=== PATIENT | female | born 1930 | race Caucasian/White ===

== ENCOUNTER → 2016-11-06 | Outpatient (CLI) | payer OTHER ==
[~2016-11-06] MED LIST: ALPRAZOLAM1 M1; AMLODIPINE BESYL5 MG PO; ASMANEX0.135 G1; BROVANA15 MCG/2 M; CALTRATE-600 W1 EACH PO; CITRATE OF MAG296 ML; CO Q-10200 MG PO; CRANBERRY500 M1; DHEA25 MG PO; DHEA50 MG; ENALAPRIL MALEAT5 M1 PO; FLAX OIL1000 MG PO; GLUCOSAMINE HC500 MG PO; GLUCOSAMINE S1000 M2 PO; HYDROCHLOROTHIA25 M1; HYDROCODON-ACE1 EAC1; IBUPROFEN 800800 M1 PO; KLOR-CON; MAGNES; MELOXICAM7.5 MG; ODORLESS GARLI500 MG; OMEPRAZOLE20 MG PO; PULMICORT0.25 MG/2; VITAMIN D1000 UNI1 PO; VITAMIN E400 UNIT PO
== END ==
LOC: MRI 12:23
DX: M48.56XA Collapsed vertebra, not elsewhere classified, lumbar region, initial encounter for fracture (principal); M41.86 Other forms of scoliosis, lumbar region; M48.06 Spinal stenosis, lumbar region; N28.1 Cyst of kidney, acquired

== ENCOUNTER 2018-05-23 16:05 | Inpatient (IN) | payer OTHER ==
[~2018-05-23] VITALS: Ht 157.5 cm; Wt 67.6 kg
--- NOTE | ~2018-05-23 | HC ---
[facility] [place] [address] CONSULTATION Name: DENICEMILLICENTMAY Room #: 364-P ADM IN M.R.#: [id number] Admission: 05/23/18 Attend Phys: Eduardo Mortensen MD Discharge: Date of : 30 Report #: [id number] THIS REPORT FOR: //name// CC: Juan [place] DATE OF SERVICE: 05/24/2018 REASON FOR CONSULTATION: I was asked to evaluate concerning possible L4-L5 diskitis. HISTORY OF PRESENT ILLNESS: The patient is an 80-year-old who presents on 05/23/2018 through the Emergency Room with increased low back pain. She has had pain for about a week. She does have a history of vertebral fracture and L1 kyphoplasty in the distant past. She states after working in the yard and pulling a trash can around to the front of her house she noticed increased pain in her back. She has had radicular features down the back both legs. No change in bowel or bladder habits. She has been taking tramadol over the last year, but noticed no improvement with the pain. It has been bad enough, she has been unable to walk on her own. No other injury noted. She notices increased pain when she does Valsalva. She has been able to urinate. She has constipation, but otherwise has been able to defecate. She has had no specific weakness in her legs. Pain now is under better control since being hospitalized. Pain radiates mostly down the left leg. No fever, chills or sweats. No other urinary tract infection symptoms, colitis symptoms. No recent cellulitis. No recent antibiotics until the admission, she was placed on ceftriaxone. PAST MEDICAL HISTORY: Tonsillectomy, appendectomy, bladder suspension surgery, hypertension, gastroesophageal reflux, cardiac catheterization. ALLERGIES: None known. MEDICATIONS: As noted on her MAR, now on ceftriaxone. FAMILY HISTORY: Noncontributory. SOCIAL HISTORY: Nonsmoker, no significant alcohol intake. Previous work was as a industrial spraypainter. She does live alone. REVIEW OF SYSTEMS: CONSTITUTIONAL: As noted above with no fever, chills, sweats, weight loss. [facility] [address] [place] [address] CONSULTATION Name: MAY JACQUES Room #: 364-P [facility] IN ..#: [id number] Admission: 05/23/18 Attend Phys: Eduardo Mortensen MD Discharge: Date of : 30 Report #: [id number] HEENT: Eyes: No visual changes. Audiology: Negative. No pharyngitis symptoms. PULMONARY: Negative. CARDIOVASCULAR: Negative. GASTROINTESTINAL: Negative. GENITOURINARY: Negative. MUSCULOSKELETAL: As above. NEUROLOGIC: As above. SKIN: Negative. LYMPH: Negative. HEMATOLOGIC: Negative. ALLERGY: Negative. ENDOCRINE: Negative. PSYCHIATRIC: Negative. PHYSICAL EXAMINATION: VITAL SIGNS: Afebrile and hemodynamically stable. GENERAL: The patient was alert, pleasant, no acute distress, lying in bed, appeared her stated age. HEENT: Eyes: No conjunctival injection or scleral icterus. Mouth: No oral lesions or mucositis. NECK: Supple. No thyromegaly or mass. No JVD. LUNGS: Clear. HEART: Regular, without murmur. ABDOMEN: Soft with no hepatosplenomegaly or mass. Incontinent of urine and had an external urinary catheter in place. BACK: Tender in the lower lumbar region to percussion. No surrounding erythema or fluctuance. No palpable adenopathy. SKIN: Without lesion, rash or decubitus. Straight leg raising cause pain in her back. NEUROLOGIC: Cranial nerves intact. Upper and lower extremity strength normal. Deep tendon reflexes in both lower extremities, knees and ankles normal. Sensation intact to fine touch both lower extremities. PSYCHIATRIC: Normal mood. LABORATORY STUDIES: Sodium 139, potassium 3.6, bicarbonate 26, creatinine 0.8. Liver function tests: Alkaline phosphatase 134, otherwise normal. Albumin at 2.9, hemoglobin 11.6, WBC 10.4, platelet count 234,000. Differential unremarkable. Urinalysis, many bacteria, otherwise unremarkable. Blood cultures pending. She had a biopsy of L4-L5 disk space. Gram stain, bacterial culture and fungus culture pending. MRI scan of the lumbar spine showed degenerative arthritis, previous lumbar #1 kyphoplasty, moderate narrowing and spinal stenosis L4-L5 showed severe spinal stenosis with fluid signal within the intervertebral disk and increased signal adjacent L4-L5 endplates concerning for diskitis and possible osteomyelitis. [address] [address] CONSULTATION Name: MAY JACQUES Room #: 364-P [facility] IN M.R.#: [id number] Admission: 05/23/18 Attend Phys: Eduardo Mortensen MD Discharge: Date of : 30 Report #: [id number] IMPRESSION: An 88-year-old with back pain and significant degenerative arthritis with spinal stenosis. She has increased L4-L5 disk space fluid with some changes to both L4-L5 endplates. Possibility of diskitis still is present, although more likely related to advanced degenerative arthritis. The patient has no systemic signs or symptoms of infection. RECOMMENDATIONS: We will await cultures of the disk aspirate that was obtained today. I will discontinue ceftriaxone in case we need to obtain further tissue sample. Obtain sedimentation rate and CRP. Rest, nonsteroidal anti-inflammatories and narcotics for pain. I agree with Neurosurgery evaluation. <ELECTRONICALLY SIGNED> By: Wicho Pfeiffer MD 05/25/18 0852 [id number] Wicho Pfeiffer MD /nt
[2018-05-23 16:11] VITALS: BP 139/91
[2018-05-23 17:19] LABS: URINE BILIRUBIN NEGATIVE (Negative); URINE BLOOD NEGATIVE (Negative); URINE CLARITY CLEAR; URINE COLOR YELLOW; URINE GLUCOSE-RANDOM* NEGATIVE (Negative); URINE KETONES NEGATIVE (Negative); URINE LEUKOCYTES-REFLEX NEGATIVE (Negative); URINE PROTEIN (DIPSTICK) NEGATIVE (Negative); URINE SPECIFIC GRAVITY 1.015 (1.005-1.035); URINE UROBILINOGEN 0.2 E.U./dl (0.2-1.0)
[2018-05-23 17:20] LABS: URINE NITRITE-REFLEX POSITIVE (Negative)
[2018-05-23 17:51] LABS: SQUAMOUS 0-3 Few /LPF (0-3)
[2018-05-23 17:52] LABS: BACTERIA-REFLEX >30 Many /HPF (None Seen); CASTS None Seen /LPF (None Seen); CRYSTALS None Seen /LPF (None Seen); URINE RBC 0-2 Rare /HPF (0-2); URINE WBC-REFLEX 0-5 Rare /HPF (0-5)
[2018-05-23 18:23] LABS: ABSOLUTE NEUTROPHILS 8.6 thou/uL (1.4-8.2); BASOPHILS 0.5 % (0.0-2.0); EOSINOPHILS 1.5 % (0.0-3.0); HEMOGLOBIN 12.1 gm/dL (12.0-15.0); LYMPHOCYTES 16.6 % (24.0-44.0); MCH 32.6 pg (26.0-34.0); MCHC 34.5 g/dL (28.0-37.0); MCV 94.5 fL (80.0-100.0); MONOCYTES 10.6 % (1.0-8.0); PLATELET COUNT 233 thou/uL (150-400); POLYS 70.8 % (36.0-66.0); RDW 13.4 % (10.5-14.5); WBC 12.1 thou/uL (4.0-11.0)
[2018-05-23 18:32] LABS: CALCIUM 9.5 mg/dL (8.5-10.1); CREATININE 0.8 mg/dL (0.6-1.0); POTASSIUM 3.7 mmol/L (3.5-5.1)
[2018-05-23 18:37] LABS: ALBUMIN 2.9 g/dL (3.4-5.0); TOTAL BILIRUBIN 0.8 mg/dL (<0.1-1.0); TOTAL PROTEIN 6.4 g/dL (6.4-8.2)
[2018-05-24] VITALS (7 sets, daily range): BP systolic 115–156; BP diastolic 61–80
[2018-05-24 04:45] LABS: HEMATOCRIT 34.2 % (37.0-47.0); HEMOGLOBIN 11.6 gm/dL (12.0-15.0); MCH 31.9 pg (26.0-34.0); MCHC 33.9 g/dL (28.0-37.0); MCV 94.2 fL (80.0-100.0); RBC 3.63 mil/uL (4.20-5.00); RDW 12.6 % (10.5-14.5); WBC 10.4 thou/uL (4.0-11.0)
[2018-05-24 04:48] LABS: CREATININE 0.8 mg/dL (0.6-1.0); POTASSIUM 3.6 mmol/L (3.5-5.1)
[2018-05-24] MEDS ORDERED: FISH OIL 1,001000 M2 PO (10:57)
[2018-05-24] MEDS ORDERED: ULTRAM 50MG TAB50 MG PO (10:58)
[2018-05-24] MEDS ORDERED: COQ-10100 MG PO (10:58)
[2018-05-24] MEDS ORDERED: GLUCOSAMINE HC500 MG PO (10:59)
[2018-05-24] MEDS ORDERED: CYMBALTA60 MG PO (11:00)
[2018-05-24] MEDS ORDERED: GARLIC500 M1 PO (11:00)
[2018-05-24] MEDS ORDERED: CALCIUM 600 +1 EAC1 PO (11:01)
[2018-05-24] MEDS ORDERED: VITAMIN E400 UNIT PO (11:02)
[2018-05-24] MEDS ORDERED: VITAMIN D2000 UNIT PO (11:03)
[2018-05-24] MEDS ORDERED: MAGNESIUM100 MG PO (11:04)
[2018-05-24] MEDS ORDERED: CRANBERRY300 MG PO (11:05)
[2018-05-24] MEDS ORDERED: VITAMIN B-1100 M1 PO (11:06)
[2018-05-24] MEDS ORDERED: BROVANA15 MCG/2 M INH (11:06)
[2018-05-24] MEDS ORDERED: VASOTEC5 MG PO (11:08)
[2018-05-24] MEDS ORDERED: ARICEPT 5 MG TAB5 MG PO (11:09)
[2018-05-24] MEDS ORDERED: NORVASC5 MG PO (11:09)
[2018-05-24] MEDS ORDERED: CELEBREX 200 M200 M1 PO (11:09)
[2018-05-24] MEDS ORDERED: PULMICORT0.5 MG/22 INH (11:10)
[2018-05-25 04:22] LABS: ABSOLUTE NEUTROPHILS 6.5 thou/uL (1.4-8.2); BASOPHILS 0.4 % (0.0-2.0); EOSINOPHILS 1.7 % (0.0-3.0); HEMATOCRIT 35.6 % (37.0-47.0); HEMOGLOBIN 12.1 gm/dL (12.0-15.0); LYMPHOCYTES 20.1 % (24.0-44.0); MCV 94.1 fL (80.0-100.0); MONOCYTES 10.8 % (1.0-8.0); PLATELET COUNT 241 thou/uL (150-400); RBC 3.78 mil/uL (4.20-5.00); RDW 12.8 % (10.5-14.5); WBC 9.7 thou/uL (4.0-11.0)
[2018-05-25 04:52] LABS: CALCIUM 9.4 mg/dL (8.5-10.1); CREATININE 0.8 mg/dL (0.6-1.0); POTASSIUM 3.5 mmol/L (3.5-5.1)
[2018-05-25 04:55] VITALS: BP 136/78
[2018-05-25 08:24] VITALS: BP 152/78
[2018-05-25 15:36] VITALS: BP 155/75
[2018-05-25 18:58] VITALS: BP 143/67
[2018-05-26 03:16] VITALS: BP 152/85
[2018-05-26 04:08] LABS: CALCIUM 9.6 mg/dL (8.5-10.1); CREATININE 0.9 mg/dL (0.6-1.0); POTASSIUM 3.4 mmol/L (3.5-5.1)
[2018-05-26 04:43] LABS: HEMATOCRIT 34.7 % (37.0-47.0); HEMOGLOBIN 12.3 gm/dL (12.0-15.0); MCH 33.5 pg (26.0-34.0); MCHC 35.6 g/dL (28.0-37.0); MCV 94.1 fL (80.0-100.0); PLATELET COUNT 246 thou/uL (150-400); RBC 3.68 mil/uL (4.20-5.00); RDW 12.6 % (10.5-14.5)
[2018-05-26 08:18] VITALS: BP 150/70
[2018-05-26 08:38] LABS: ABSOLUTE NEUTROPHILS 6.2 thou/uL (1.4-8.2)
[2018-05-26 08:39] LABS: ANISOCYTOSIS SLIGHT
[2018-05-26 12:50] VITALS: BP 148/73
[2018-05-26 16:52] VITALS: BP 159/75
[2018-05-26 20:55] VITALS: BP 148/74
[2018-05-27 05:20] VITALS: BP 136/80
[2018-05-27 06:28] LABS: ABSOLUTE NEUTROPHILS 5.9 thou/uL (1.4-8.2); BASOPHILS 0.5 % (0.0-2.0); EOSINOPHILS 2.3 % (0.0-3.0); HEMATOCRIT 38.2 % (37.0-47.0); HEMOGLOBIN 12.8 gm/dL (12.0-15.0); LYMPHOCYTES 32.4 % (24.0-44.0); MCH 31.7 pg (26.0-34.0); MCHC 33.6 g/dL (28.0-37.0); MCV 94.4 fL (80.0-100.0); MONOCYTES 10.4 % (1.0-8.0); PLATELET COUNT 294 thou/uL (150-400); POLYS 54.4 % (36.0-66.0); RBC 4.04 mil/uL (4.20-5.00); RDW 13.2 % (10.5-14.5); WBC 10.8 thou/uL (4.0-11.0)
[2018-05-27 06:37] LABS: CALCIUM 9.7 mg/dL (8.5-10.1); CREATININE 0.8 mg/dL (0.6-1.0); POTASSIUM 3.4 mmol/L (3.5-5.1)
[2018-05-27 07:49] VITALS: BP 183/89
[2018-05-27 12:25] VITALS: BP 143/76
[2018-05-27 15:37] VITALS: BP 130/73
[2018-05-27] MEDS ORDERED: HYDROCODON-ACE1 EAC7 PO (17:14)
[2018-05-27] MEDS ORDERED: ACETAMINOPHEN325 M1 PO (17:14)
[2018-05-27] MEDS ORDERED: PROTONIX 20 MG20 M1 PO (17:14)
[2018-05-27 20:10] VITALS: BP 132/53
== END 2018-05-27 18:20 | DRG 872 ==
LOC: ER 16:05 → 3W 19:25 → EROBS 19:25 → 3W 19:25
PROVIDERS: Family Medicine; Hospitalist; Nurse Practitioner Family; Physician Assistant
PROC: 0S923ZX Drainage of Lumbar Vertebral Disc, Percutaneous Approach, Diagnostic (ICD-10-PCS; principal; 2018-05-23)
DX: A41.9 Sepsis, unspecified organism (principal); N39.0 Urinary tract infection, site not specified; M48.56XA Collapsed vertebra, not elsewhere classified, lumbar region, initial encounter for fracture; M46.46 Discitis, unspecified, lumbar region; I10 Essential (primary) hypertension; K21.9 Gastro-esophageal reflux disease without esophagitis; M48.061 Spinal stenosis, lumbar region without neurogenic claudication; M19.90 Unspecified osteoarthritis, unspecified site; Z60.2 Problems related to living alone; M81.0 Age-related osteoporosis without current pathological fracture; G89.29 Other chronic pain; R63.4 Abnormal weight loss; M54.16 Radiculopathy, lumbar region; B96.20 Unspecified Escherichia coli [E. coli] as the cause of diseases classified elsewhere; Z28.21 Immunization not carried out because of patient refusal; Z90.49 Acquired absence of other specified parts of digestive tract; Z79.899 Other long term (current) drug therapy; Z68.27 Body mass index [BMI] 27.0-27.9, adult
CPT/HCPCS: 10112; 10879

== ENCOUNTER 2018-05-27 16:36 | Inpatient (IN) | payer OTHER ==
[~2018-05-27] VITALS: Ht 157.5 cm; Wt 71.3 kg
--- NOTE | ~2018-05-27 | HC ---
[facility] [place] [address] CONSULTATION Name: MAY JACQUES Room #: 503-P [facility] IN M.R.#: [id number] Admission: 05/27/18 Attend Phys: Isacc Rothman MD Discharge: Date of : 30 Report #: [id number] THIS REPORT FOR: //name// CC: Isacc Castrejon DATE OF SERVICE: 05/29/2018 AGE: 88. ATTENDING PHYSICIAN: Isacc Rothman MD. SENIOR PROGRAM PLANNER: Jose Armando Chapman, PhD. CLINICAL PRESENTATION: The patient is an 88-year-old female admitted to the rehabilitation unit at [facility] for comprehensive inpatient rehabilitation program to improve functional mobility, activities of daily living and self-care and mental status secondary to deficits from a lumbar radiculopathy with bilateral lower extremity weakness. Her diagnoses include severe spinal stenosis, possible L4 diskitis, osteomyelitis, status post aspiration, urinary tract infection, hypertension, gastroesophageal reflux disease, and a history of L1 compression fracture, status post kyphoplasty. A complete description of her medical condition and history along with medications can be found in her medical record. Neuropsychological consultation was requested to provide assistance in the assessment of cognitive and emotional status and to provide recommendations and services. Prior to this most recent admission, she was living independently in her own home. She has two children that keep a close eye on her wellbeing. They assist in management of medication and nutrition when necessary. She is . 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 She indicates that she was driving independently and managing her instrumental activities of daily living without assistance. However, she does live alone. TECHNIQUES UTILIZED: Clinical interview, review of medical records, staff consultation and behavioral observation, mini mental status exam 2 standard version and category fluency assessment. EXAMINATION FINDINGS: The patient was alert and cooperative with the assessment. She accurately described events surrounding her admission. There is no evidence of aphasia. She does not describe auditory or visual hallucinations. Her thoughts are logical and goal oriented. There is no evidence of thought disorder. She does not report difficulty with sleep or appetite. She denies subjective anxiety or depression. She is hard of hearing, which interferes with auditory comprehension. Word finding is reported as more [facility] [address] [place] [address] CONSULTATION Name: MAY JACQUES Room #: 503-P [facility] IN [facility].#: [id number] Admission: 05/27/18 Attend Phys: Isacc Rothman MD Discharge: Date of : 30 Report #: [id number] difficult. She has a significant hand tremor and is tangential. However, tangential ideation may be related to the deficits in hearing. Her performance on the MMSE 2 brief version was extremely low with a raw score of 12/16, which is a T score 28, percentile rank of 1. She was 3/3 for initial registration, 5/5 for orientation to time, 3/[address] and 1/3 for immediate recall of 3 items after a brief time delay and distraction. Her performance improved on the MMSE 2 standard version to a raw score 23/30, which is a T at 32 and percentile rank of 4. She was 3/5 for serial sevens, 2/2 for naming, 1/1 for repetition, 3/3 for auditory comprehension. She could read and follow a single command and dictate a sentence. She was unable to accurately copy a simple geometric design. She does have a severe hand tremor, which interferes with upper extremity dexterity. Variability in auditory comprehension is noted, likely secondary to being hard of hearing. Memory is decreased. Category fluency was at the 14th percentile, which is in the low average range, suggesting a subtle decline in thought organization and verbal fluency. DIAGNOSTIC IMPRESSION: Mild neurocognitive disorder, unspecified, without behavior disorder. RECOMMENDATIONS: The patient may benefit from increased assistance at home in order to maintain safety. Upper extremity tremor may interfere with medication management as well as driving. A behind the wheel driving evaluation is likely to be necessary. Consider outpatient follow up for complete neuropsychological testing and Educational information for her children in regard to areas of variability in cognition. She is hard of hearing and would benefit from an Audiology assessment following discharge. Thank you very much for allowing me to provide the consultation on this patient. <ELECTRONICALLY SIGNED> By: Jose Armando Chapman, PhD 06/01/18 0730 [id number] 08 Jose Armando Chapman, PhD /nt
--- NOTE | ~2018-05-27 | PLAN ---
[facility] [place] [address] REHAB UNIT PLAN OF CARE Name: MAY JACQUES Room #: 503-P [facility] IN M.R.#: [id number] Admission: 05/27/18 Attend Phys: Isacc Rothman MD Discharge: Date of : 30 Report #: [id number] THIS REPORT FOR: //name// CC: Isacc Castrejon DATE OF SERVICE: 05/29/2018 PROGRESS NOTE AND OVERALL PLAN OF CARE The patient was seen earlier. She was in no distress. She is alert, forgetful, has some tremoring of her hands. Temperature 36.8, pulse 93, respirations 13, blood pressure 140/63. She has been working in therapies with transfers, min assist. Gait, min assist 150 feet with a standard cane. She is min assist, going up and down steps. In occupational therapy, lower body dressing is supervision. ASSESSMENT: 1. Lumbar radiculopathy with bilateral lower extremity weakness. 2. Severe spinal stenosis. 3. Possible L4 diskitis/osteomyelitis, status post aspiration. 4. Urinary tract infection. 5. Hypertension. 6. Gastroesophageal reflux disease. PLAN: The overall plan of care is based on the preadmission screen, post-admission physician evaluation and information garnered from therapy assessments. 1. Estimated length of stay is at least 7-10 days, pending progress. 2. Medical prognosis is reasonably good. 3. Anticipated interventions includes the interdisciplinary acute inpatient rehabilitation program with PT and OT, rehab nursing assisting regarding medication management, skin care prophylaxis, bowel and bladder issues and nursing education. Case management is involved as well as the interdisciplinary acute inpatient rehabilitation team and the business solutions consultant physicians. 4. Anticipated functional outcomes would be for the patient to become modified independent with transfers, mobility, ADLs, so that she can hopefully return back to her prior living situation. Goal would be to achieve independence at least at the cane level versus walker level. 5. Discharge destination would be back home where she lives alone. She does have supportive daughters. 6. Expected therapy by discipline includes PT and OT 1 and 1-1/2 hours per day [address] [address] REHAB UNIT PLAN OF CARE Name: MAY JACQUES Room #: 503-P [facility] IN ..#: [id number] Admission: 05/27/18 Attend Phys: Isacc Rothman MD Discharge: Date of : 30 Report #: [id number] each five days a week throughout the duration of the acute inpatient rehabilitation stay. <ELECTRONICALLY SIGNED> By: Isacc Rothman MD 06/08/18 1121 1820 193 Isacc Rothman MD /[facility]
--- NOTE | ~2018-05-27 | H ---
[facility] [place] [address] [place] [address] HISTORY AND PHYSICAL Name: MAY JACQUES Room #: 503-P ADM IN M.R.#: [id number] Admission: 05/27/18 Attend Phys: Isacc Rothman MD Discharge: Date of : 30 Report #: [id number] THIS REPORT FOR: //name// CC: Isacc Castrejon DATE OF SERVICE: 05/27/2018 HISTORY AND PHYSICAL/POST-ADMISSION PHYSICIAN EVALUATION HISTORY OF PRESENT ILLNESS: The patient is an 88-year-old white female, originally presented to the Emergency Department at [facility] on 05/23/2018 with acute low back pain x 1 week, weakness and change in functional mobility. She was noted to have lumbar radiculopathy with bilateral lower extremity weakness, severe lumbar spinal stenosis, concerned for L4-L5 discitis with osteomyelitis and underwent disc aspiration on 05/24/2018. She was seen by Neurosurgery and Infectious Disease. Final cultures are pending. The pain is radiating down both lower extremities with activity. She does have an old L1 compression fracture with previous kyphoplasty. She was treated for urinary tract infection and sepsis. Please see the discharge dictation from Dr. Roberson. With her functional decline, pain management issues and multiple consultants involvement, she has now been admitted for acute in-hospital inpatient rehabilitation. ALLERGIES: No known drug allergies. PAST MEDICAL HISTORY: Hypertension, GERD, spinal stenosis. PAST SURGICAL HISTORY: Appendectomy, cardiac cath, bladder tie-up x 2, L1 fracture with kyphoplasty. HABITS: Nonsmoker. No history of alcohol abuse. SOCIAL HISTORY: Alone. House, 1 entry stair, 3 stairs to garage where laundry is. She does have 2 supportive daughters living in the [place] area. She was independent with ADLs, has a cane at home but rarely used it. REVIEW OF SYSTEMS: She has complaints of some low back and bilateral lower extremity pain. No chest pain, shortness of breath, or abdominal discomfort. Denied fever or chills. No cough. No dysuria. No specific tingling or dizziness. PHYSICAL EXAMINATION: GENERAL: A pleasant 88-year-old white female, in no obvious distress. She is pleasant, alert. VITAL SIGNS: Last recorded temperature 98.4, pulse 59, respirations 18, blood [address] [address] HISTORY AND PHYSICAL Name: MAY JACQUES Room #: [address] [place] [address] [place] ..#: [id number] Admission: 05/27/18 Attend Phys: Isacc Rothman MD Discharge: Date of : 30 Report #: [id number] pressure 159/60. HEENT: Appeared to be benign. Facies are symmetric. CHEST: Sounded clear to auscultation. CARDIOVASCULAR: Regular rate and rhythm. ABDOMEN: Bowel sounds positive, nontender. GENITOURINARY: Deferred. RECTAL: Deferred. NEUROLOGIC: She has functional range of motion of both upper extremities. Strength is a grade 4/5. DTRs are trace to 1. Lower extremities, no focal calf swelling. Tone appeared to be intact. I would grade her strength at a 4 to 4-/5. No focal sensory decrease. DTRs are 1. Functionally, she has been needing min to mod assist for sit to stand, min assist to ambulate short distances with the walker. ASSESSMENT: An 88-year-old white female with the following problem list: 1. Lumbar radiculopathy with bilateral lower extremity weakness. 2. Severe spinal stenosis. 3. Possible L4 discitis/osteomyelitis status post aspiration. 4. Urinary tract infection. 5. Hypertension. 6. Gastroesophageal reflux disease. 7. History of L1 compression fracture status post kyphoplasty. PLAN: The patient is admitted for acute in-hospital inpatient rehabilitation. From a post-admission physician evaluation perspective, there are no relevant changes since the preadmission screening. Please see the above review of prior and current medical and functional conditions and comorbidities. Please see the patient's previous and current functional status. As far as risk of complications, the patient has multiple medical comorbidities as noted above. We will have the multiple loans consultant physicians continue to follow. The initial plan of care involves the interdisciplinary acute inpatient rehabilitation program with the goal of maximizing her functional independence, so she can return back to the home setting. Measurable functional goals would be for her to become modified independent with mobility and ADLs and to improve to the point that she can return back to the home setting. Prognosis is reasonably good with estimated length of stay probably at least 7-10 days and potentially longer. Potential barriers would include her multiple medical comorbidities and decreased functional status. The patient meets diagnostic criteria for an acute in-hospital inpatient rehabilitation stay. She meets the medical necessity criteria and we will have the multiple loans consultant physicians continue to follow. She does have the [address] [address] HISTORY AND PHYSICAL Name: MAY JACQUES Room #: 503-P [facility] IN M.R.#: [id number] Admission: 05/27/18 Attend Phys: Isacc Rothman MD Discharge: Date of : 30 Report #: [id number] tolerance for therapies and has appropriate discharge goals back to the home setting. <ELECTRONICALLY SIGNED> By: Isacc Rothman MD 06/08/18 1121 0820 0920 Isacc Rothman MD /nt
[~2018-05-27 16:36] MED LIST changes: +ARICEPT 5 MG TAB5 MG PO; +BROVANA15 MCG/2 M INH; +CALCIUM 600 +1 EAC1 PO; +CELEBREX 200 M200 M1 PO; +COQ-10100 MG PO; +CRANBERRY300 MG PO; +CYMBALTA60 MG PO; +FISH OIL 1,001000 M2 PO; +GARLIC500 M1 PO; +MAGNESIUM100 MG PO; +NORVASC5 MG PO; +PULMICORT0.5 MG/22 INH; +ULTRAM 50MG TAB50 MG PO; +VASOTEC5 MG PO; +VITAMIN B-1100 M1 PO; +VITAMIN D2000 UNIT PO
[2018-05-27] MEDS ORDERED: PROTONIX 20 MG20 M1 PO (17:14)
[2018-05-27] MEDS ORDERED: HYDROCODON-ACE1 EAC7 PO (17:14)
[2018-05-27] MEDS ORDERED: ACETAMINOPHEN325 M1 PO (17:14)
[2018-05-27 20:10] VITALS: BP 132/53
[2018-05-28 00:33] VITALS: BP 159/60
[2018-05-28 06:19] LABS: HEMATOCRIT 33.8 % (37.0-47.0); HEMOGLOBIN 11.2 gm/dL (12.0-15.0); MCH 31.5 pg (26.0-34.0); MCHC 33.1 g/dL (28.0-37.0); MCV 95.2 fL (80.0-100.0); RBC 3.55 mil/uL (4.20-5.00); RDW 12.8 % (10.5-14.5); WBC 8.4 thou/uL (4.0-11.0)
[2018-05-28 06:21] LABS: CREATININE 0.8 mg/dL (0.6-1.0); POTASSIUM 3.7 mmol/L (3.5-5.1)
[2018-05-28 07:15] VITALS: BP 138/71
[2018-05-28 19:29] VITALS: BP 125/59
[2018-05-29 07:22] VITALS: BP 140/63
[2018-05-29 19:10] VITALS: BP 132/61
[2018-05-30 08:13] VITALS: BP 154/79
[2018-05-30 19:04] LABS: BASOPHILS 0.6 % (0.0-2.0); EOSINOPHILS 4.2 % (0.0-3.0); HEMATOCRIT 33.3 % (37.0-47.0); HEMOGLOBIN 11.3 gm/dL (12.0-15.0); LYMPHOCYTES 23.9 % (24.0-44.0); MCH 32.3 pg (26.0-34.0); MCHC 33.9 g/dL (28.0-37.0); MCV 95.3 fL (80.0-100.0); MONOCYTES 9.2 % (1.0-8.0); PLATELET COUNT 275 thou/uL (150-400); POLYS 62.1 % (36.0-66.0); RBC 3.49 mil/uL (4.20-5.00); RDW 12.9 % (10.5-14.5); WBC 9.7 thou/uL (4.0-11.0)
[2018-05-30 19:12] LABS: CALCIUM 9.7 mg/dL (8.5-10.1); CREATININE 0.9 mg/dL (0.6-1.0); POTASSIUM 3.8 mmol/L (3.5-5.1)
[2018-05-30 19:25] VITALS: BP 127/64
[2018-05-31 06:37] LABS: BASOPHILS 0.6 % (0.0-2.0); EOSINOPHILS 5.7 % (0.0-3.0); HEMATOCRIT 29.5 % (37.0-47.0); HEMOGLOBIN 9.8 gm/dL (12.0-15.0); LYMPHOCYTES 30.2 % (24.0-44.0); MCH 31.8 pg (26.0-34.0); MCHC 33.1 g/dL (28.0-37.0); MCV 96.1 fL (80.0-100.0); MONOCYTES 10.9 % (1.0-8.0); PLATELET COUNT 244 thou/uL (150-400); POLYS 52.6 % (36.0-66.0); RBC 3.07 mil/uL (4.20-5.00); WBC 7.5 thou/uL (4.0-11.0)
[2018-05-31 06:48] LABS: CALCIUM 9.2 mg/dL (8.5-10.1); CREATININE 0.8 mg/dL (0.6-1.0); POTASSIUM 4.2 mmol/L (3.5-5.1)
[2018-05-31 08:10] VITALS: BP 138/76
[2018-05-31 12:37] LABS: % SATURATION 17 % (20-39); IRON 39 ug/dL (50-170); TIBC 229 ug/dL (250-450)
[2018-05-31 12:52] LABS: FOLIC ACID 14.1 ng/mL (8.6-58.9)
[2018-05-31 19:20] VITALS: BP 140/66
[2018-06-01 07:45] VITALS: BP 149/71
[2018-06-01 20:13] VITALS: BP 142/70
[2018-06-02 07:30] VITALS: BP 119/70
[2018-06-02 07:36] VITALS: BP 167/67
[2018-06-02 19:09] VITALS: BP 147/75
[2018-06-03 07:11] VITALS: BP 148/81
[2018-06-03 19:22] VITALS: BP 139/63
[2018-06-04 07:02] VITALS: BP 146/80
[2018-06-04 19:59] VITALS: BP 132/52
[2018-06-05 03:42] LABS: HEMATOCRIT 33.2 % (37.0-47.0); MCH 31.9 pg (26.0-34.0); MCHC 33.2 g/dL (28.0-37.0); MCV 96.1 fL (80.0-100.0); PLATELET COUNT 266 thou/uL (150-400); RBC 3.46 mil/uL (4.20-5.00); RDW 12.8 % (10.5-14.5); WBC 8.2 thou/uL (4.0-11.0)
[2018-06-05 03:48] LABS: CALCIUM 9.1 mg/dL (8.5-10.1); CREATININE 0.9 mg/dL (0.6-1.0); MAGNESIUM 1.7 mg/dL (1.8-2.4)
[2018-06-05 04:11] LABS: ABSOLUTE NEUTROPHILS 4.8 thou/uL (1.4-8.2); PLATELET ESTIMATE NORMAL
[2018-06-05 08:06] VITALS: BP 133/58
[2018-06-05 19:25] VITALS: BP 133/52
[2018-06-06 09:26] VITALS: BP 145/71
[2018-06-06 21:00] VITALS: BP 134/59
[2018-06-07 08:16] VITALS: BP 166/65
[2018-06-07 19:25] VITALS: BP 118/79
[2018-06-07 19:30] VITALS: BP 132/65
[2018-06-08 09:37] VITALS: BP 141/62
[2018-06-08 18:47] VITALS: BP 128/53
[2018-06-09 07:01] VITALS: BP 140/67
[2018-06-09] MEDS ORDERED: NEURONTIN 300300 M1 PO (09:22)
[2018-06-09] MEDS ORDERED: COLACE100 MG PO (09:22)
[2018-06-09] MEDS ORDERED: IRON325 PO (09:22)
[2018-06-09] MEDS ORDERED: LIDOPATCH1 EACH TRANSDERM (09:22)
[2018-06-09] MEDS ORDERED: VITAMIN B-12500 MCG PO (09:22)
[2018-06-09] MEDS ORDERED: VOLTAREN GEL 1100 G2 TOP (09:22)
[2018-06-09] MEDS ORDERED: CYMBALTA60 MG PO (10:43)
[2018-06-09] MEDS ORDERED: PROTONIX 20 MG20 M1 PO (10:43)
[2018-06-09 10:50] VITALS: BP 140/67
[2018-06-09 11:00] VITALS: BP 140/67
== END 2018-06-09 13:54 | disposition home health service (06) | DRG 552 ==
LOC: ENTRNSPT 06-09 13:47 → EDTRNSPTSTS 06-09 13:49
PROVIDERS: Hospitalist; Nurse Practitioner; Physical Medicine & Rehabilitation
DX: M46.46 Discitis, unspecified, lumbar region (principal); M46.26 Osteomyelitis of vertebra, lumbar region; N39.0 Urinary tract infection, site not specified; M47.26 Other spondylosis with radiculopathy, lumbar region; M48.062 Spinal stenosis, lumbar region with neurogenic claudication; R53.1 Weakness; I10 Essential (primary) hypertension; K21.9 Gastro-esophageal reflux disease without esophagitis; G31.84 Mild cognitive impairment of uncertain or unknown etiology; Z60.2 Problems related to living alone; E83.42 Hypomagnesemia; D64.9 Anemia, unspecified; R63.4 Abnormal weight loss; Z68.28 Body mass index [BMI] 28.0-28.9, adult; Z90.49 Acquired absence of other specified parts of digestive tract; Z87.311 Personal history of (healed) other pathological fracture; Z79.899 Other long term (current) drug therapy
CPT/HCPCS: 10112

== ENCOUNTER → 2018-07-02 | Outpatient (CLI) | payer OTHER ==
[~2018-07-02] MED LIST changes: +ACETAMINOPHEN325 M1 PO; +COLACE100 MG PO; +HYDROCODON-ACE1 EAC7 PO; +IRON325 PO; +LIDOPATCH1 EACH TRANSDERM; +NEURONTIN 300300 M1 PO; +PROTONIX 20 MG20 M1 PO; +VITAMIN B-12500 MCG PO; +VOLTAREN GEL 1100 G2 TOP
== END ==
LOC: MRI 13:33
DX: M47.816 Spondylosis without myelopathy or radiculopathy, lumbar region (principal); M51.26 Other intervertebral disc displacement, lumbar region; N28.1 Cyst of kidney, acquired; M25.78 Osteophyte, vertebrae; M48.061 Spinal stenosis, lumbar region without neurogenic claudication

== ENCOUNTER → 2018-08-12 | Outpatient (CLI) | payer OTHER ==
[~2018-08-12] VITALS: Ht 157.5 cm; Wt 76.7 kg
[~2018-08-12] MED LIST changes: +DURAGESIC1 EACH TRANSDERM; +K-TAB ER8 MEQ PO; +LO-DOSE ASPIRIN81 M1 PO; +NEURONTIN 400400 M1 PO; +OXYCODONE-APAP1 EAC4 PO
--- NOTE | ~2018-08-12 | HPC ---
[facility] [place] [address] PAIN MANAGEMENT CONSULTATION Name: MAY JACQUES Room #: REG [facility].#: [id number] Admission: 08/12/18 Attend Phys: Ranjit Rocha MD Discharge: Date of : 30 Report #: [id number] THIS REPORT FOR: //name// CC: WICHO Rocha DATE OF SERVICE: 08/12/2018 CHIEF COMPLAINT: Low back pain with radicular symptoms. The patient is here today at the request of Dr. Wicoh Pfeiffer. She has had longstanding back pain related to spinal stenosis and spondylosis. She has been seen in different pain clinics throughout the community, most recently by Dr. Wicho Fuchs over at [facility]. Dr. Fuchs has done a number of treatments including radiofrequency ablation and has performed intermittent epidural injections. The patient presents today with classic symptoms of spinal stenosis with low back pain and radiculopathy as well as neurogenic claudication. She has mild to moderate dementia. Her daughter answers many questions for her. Her daughter, Ariadna is here with her today and has asked me specifically to call Dr. Pfeiffer before we perform any procedures. That said she is hopeful that we will provide an epidural injection or some form of injection so that her mother can receive some pain relief without additional medications. She is already being treated by her primary care physician, Dr. Cash barraza in [place]. All medications have been provided through his office and there was no request for me to provide medications for her. Given her age and the distance to travel, I think it is appropriate for her to continue receive medication from Dr. Castrejon and I would support his judgment in providing the medications carefully under terms of a written opioid agreement or by verbal agreement. CURRENT MEDICATIONS: Potassium, docusate, oxycodone 5/325 taken rarely for breakthrough pain, aspirin, gabapentin 400 mg t.i.d., fentanyl 12 mcg patch, Cymbalta 60 mg daily, Pulmicort, amlodipine, celecoxib 200 mg daily, donepezil or Aricept 5 mg once daily at bedtime, Vasotec, vitamin B, Brovana, vitamin E, garlic, glucosamine, CoQ10 and fish oil. ALLERGIES: None. PAST MEDICAL HISTORY: Significant for memory loss, depression, history of TIA. She has hypertension. PAST SURGICAL HISTORY: History of bladder surgery x 2. Past surgery also includes appendectomy and hysterectomy in the distant past. [address] [address] PAIN MANAGEMENT CONSULTATION Name: MAY JACQUES Room #: REG CLI [facility]#: [id number] Admission: 08/12/18 Attend Phys: Ranjit Rocha MD Discharge: Date of : 30 Report #: [id number] SOCIAL HISTORY: She is . She is here today with her daughter. She lives independently according to the daughter, but the daughter lives close enough and checks on her on a daily basis. PHYSICAL EXAMINATION: GENERAL: Her daughter does much of the speaking for, but she does answer questions appropriately for me. She is pleasant, alert and oriented. VITAL SIGNS: Blood pressure 139/68, heart rate 85, respirations 16. Her gait is slow and antalgic. She uses a walker. She does not appear to be a fall risk and has not fallen. CHEST: Clear. CARDIAC: Rhythm is regular. I could not appreciate a murmur. ABDOMEN: Soft. There is no organomegaly. MUSCULOSKELETAL: Examination of the spine reveals tenderness across the lumbosacral segment. Limited range of motion. Bilateral straight leg raising pain is noted mostly in the posterior aspect of the leg involving L4-L5. IMPRESSION: Low back pain with radiculopathy secondary to critical spinal stenosis seen at L4-L5 at 4.5 mm. RECOMMENDATION: Epidural steroid injection at L3-L4. I think this is the best location given the fact that she also has stenosis noted at L2-L3. PROCEDURE: She was taken to fluoroscopic suite, placed prone, skin prepped with ChloraPrep. Skin anesthetized over the L3-L4 interspace. Using a left paramedian approach, I advanced needle into the epidural space on the first attempt using loss of resistance technique. There was no blood or CSF aspirated. 1 mL of Omnipaque was injected. Good spread of dye observed in the epidural space followed by 3 mL of 0.5% lidocaine mixed with 80 mg triamcinolone. She tolerated the procedure well and was observed for 45 minutes and discharged. Followup visit planned in the pain clinic as needed. By: 1811 2232 Ranjit Rocha MD /nt
[2018-08-12 13:34] VITALS: BP 139/68
--- NOTE | 2018-08-12 14:03 | NUR ---
Pain Clinic Assessment: 1. History of Osteoarthritis: Not Applicable History of Rheumatoid Arthritis: Not Applicable 2. Height: 5 ft. 2 in. 157.5 cm. Weight: 169.0 lb. oz. 76.658 kg. Patient's BMI: 30.9 3. Vital Signs: BP: 139/68 Pulse: 85 Resp: 16 Temp: 02 Sat: 96 ECG Mon: 4. Pain Intensity: 8 5. Fall Risk: Dizziness: N Needs help standing or walking: Y Fallen in the last 3 months: N Fall risk comments: 6. Patient on Blood Thinner: None 7. History of Hypertension: Y 8. Opioid Therapy greater than 6 weeks: N Opiate Contract Signed: 9. Risk Assessment Tool Provided: LOW RISK 07/29 10. Functional Assessment Tool: 11. Recreational Drug Use: Never Drug Type: Tobacco Use: Never Smoker Tobacco Type: Amount or Packs/day: How Many Years: Alcohol Use: No Frequency: Quant:
== END | disposition home or self-care (01) ==
LOC: PAIN 07:18
DX: M47.26 Other spondylosis with radiculopathy, lumbar region (principal); M48.061 Spinal stenosis, lumbar region without neurogenic claudication; F03.90 Unspecified dementia, unspecified severity, without behavioral disturbance, psychotic disturbance, mood disturbance, and anxiety; F32.9 Major depressive disorder, single episode, unspecified; I10 Essential (primary) hypertension; Z79.899 Other long term (current) drug therapy; Z79.82 Long term (current) use of aspirin; Z86.73 Personal history of transient ischemic attack (TIA), and cerebral infarction without residual deficits; Z98.890 Other specified postprocedural states; Z90.49 Acquired absence of other specified parts of digestive tract; Z90.710 Acquired absence of both cervix and uterus

== ENCOUNTER → 2018-11-15 | Outpatient (CLI) | payer OTHER | LOC: RAD 14:52 | DX: J45.40 Moderate persistent asthma, uncomplicated (principal); Z88.8 Allergy status to other drugs, medicaments and biological substances ==

== ENCOUNTER → 2018-12-16 | Outpatient (CLI) | payer OTHER ==
[~2018-12-16] VITALS: Ht 157.5 cm; Wt 78.1 kg
--- NOTE | ~2018-12-16 | HPC ---
[facility] [place] [address] PAIN MANAGEMENT CONSULTATION Name: MAY JACQUES Room #: REG [facility] Skip.#: [id number] Admission: 12/16/18 ������������������ Attend Phys: Ranjit Rocha MD Discharge: ������������������ Date of : 30 Report #: [id number] THIS REPORT FOR: //name// CC: Juan Rocha DATE OF SERVICE: 12/16/2018 Followup visit for chronic low back pain with radiculopathy. This is a repeat visit for the patient who was first seen in July of this year for radiculopathy. She responded beautifully to an epidural injection with two months of exceptional pain relief, which then gradually returned over the last 3 months. At 88 years of age, we hope that we can continue to provide her relief with this straightforward injection performed for spinal stenosis. She returns today. Pain is an 8/10. It radiates into both legs in a radicular fashion stopping about the knees. It is worse with standing and walking, relieved with rest and medication. We reviewed her medications in detail. They include Cymbalta, oxycodone, gabapentin and a fentanyl patch for chronic pain. She takes Celebrex as well. She is on Aricept, which may have some pain relieving benefits as well as its memory purposes. PHYSICAL EXAMINATION: GENERAL: She is a pleasant 88-year-old. VITAL SIGNS: Her blood pressure is 147/75, heart rate 80 and respirations 18. She moves independently from sitting to standing position. Her gait is antalgic. CHEST: Clear. CARDIAC: Rhythm is regular. ABDOMEN: Soft. BACK: Examination of the spine reveals tenderness across the lumbosacral segment with restrictions in motion. Positive straight leg raising is noted bilaterally. MRI once again reviewed shows severe spinal stenosis at the level of 4.5 mm in the central canal at L4-L5. She responded nicely to the injections. Surgery would certainly be a challenge. She might be a candidate for a minimally invasive procedure, but I would like to look personally at her MRI before we make that decision. For now, we will continue to try and manage her with epidural injections and medication. Discussed at some length with her daughter Sydnee. [address] [address] PAIN MANAGEMENT CONSULTATION Name: MAY JACQUES Room #: [facility].#: [id number] Admission: 12/16/18 ������������������ Attend Phys: Ranjit Rocha MD Discharge: ������������������ Date of : 30 Report #: [id number] PLAN: Epidural steroid injection at L3-L4 under fluoroscopic guidance just above the level of severe stenosis. She was taken to fluoroscopic suite, placed prone, skin prepped with ChloraPrep. Skin anesthetized over the L3-L4 interspace. A 20-gauge Tuohy epidural needle was advanced in the epidural space in the first attempt using loss of resistance technique. There was no blood or CSF aspirated. A 1 mL of Omnipaque was injected. Good spread of dye was observed into the epidural space, was followed by 3 mL of 0.5% lidocaine mixed with 80 mg triamcinolone. She tolerated the procedure well. She was observed for 45 minutes and discharged. Followup visit planned in the pain clinic on an as needed basis. ��������������������������������������������� ���������������������������������������� By: ��������������������������������������������� [id number] Ranjit Rocha MD /nt
[2018-12-16 09:08] VITALS: BP 147/75
--- NOTE | 2018-12-16 09:14 | NUR ---
Pain Clinic Assessment: 1. History of Osteoarthritis: Not Applicable History of Rheumatoid Arthritis: Not Applicable 2. Height: 5 ft. 2 in. 157.5 cm. Weight: 172.2 lb. oz. 78.109 kg. Patient's BMI: 31.5 3. Vital Signs: BP: 147/75 Pulse: 80 Resp: 18 Temp: 02 Sat: 95 ECG Mon: 4. Pain Intensity: 8 5. Fall Risk: Dizziness: N Needs help standing or walking: N Fallen in the last 3 months: N Fall risk comments: 6. Patient on Blood Thinner: None 7. History of Hypertension: Y 8. Opioid Therapy greater than 6 weeks: N Opiate Contract Signed: 9. Risk Assessment Tool Provided: LOW RISK 07/29 10. Functional Assessment Tool: 11. Recreational Drug Use: Never Drug Type: Tobacco Use: Never Smoker Tobacco Type: Amount or Packs/day: How Many Years: Alcohol Use: No Frequency: Quant:
== END | disposition home or self-care (01) ==
LOC: PAIN 06:51
DX: M54.16 Radiculopathy, lumbar region (principal); G89.29 Other chronic pain; Z79.891 Long term (current) use of opiate analgesic; Z98.890 Other specified postprocedural states; Z87.440 Personal history of urinary (tract) infections; Z79.82 Long term (current) use of aspirin

== ENCOUNTER → 2019-05-09 | Outpatient (CLI) | payer OTHER ==
[~2019-05-09] VITALS: Ht 157.5 cm; Wt 81.6 kg
--- NOTE | ~2019-05-09 | HPC ---
[facility] [place] [address] PAIN MANAGEMENT CONSULTATION Name: MAY JACQUES [id number] Admission: 05/09/19 Attend Phys: Ranjit Rocha MD Discharge: Date of : 30 Report #: [id number] THIS REPORT FOR: //name// CC: Juan Rocha DATE OF SERVICE: 05/09/2019 Followup visit for low back pain with radiculopathy and lumbar spondylosis. The patient returns to pain clinic today with her daughter. She had a really excellent response to her epidural injection once again in November. Nearly 3-1/2 months of excellent relief almost 4 before the pain began to gradually return. Pain is once again back in the same area. It radiates into both legs in a radicular fashion. It stops just behind the knee. She continues to have pain with standing and walking. When she sits down and rests, she gets relief. All medications have been reviewed and reconciled today. For age, she remains on a fair number of medications including pain medications. She is on Celebrex, gabapentin, Cymbalta. She denies side effects. No constipation. I note that she is on Aricept as well, taking 5 mg at bedtime. All other medications were reviewed and reconciled and are noted on the electronic medical record. PHYSICAL EXAMINATION: GENERAL: This is a sandie 89-year-old pleasant, soft spoken. Mild memory issues. VITAL SIGNS: Blood pressure 136/80, heart rate 74, respirations 16. She independently moves from sitting to standing position. Her gait is markedly antalgic. CHEST: Clear to auscultation. CARDIAC: Rhythm is regular with no audible murmur. ABDOMEN: Soft. BACK AND MUSCULOSKELETAL: She has tenderness in both shoulders. She walks with a cane. She has good range of motion in wrist, elbow and shoulder bilaterally. There is some spinal tenderness particularly across the lumbosacral segment. Bilateral straight leg raising discomfort is noted. No sensory loss. Generalized weakness is present. IMPRESSION: Lumbar radiculopathy. RECOMMENDATION: Epidural steroid injection under fluoroscopic guidance. PROCEDURE: She was taken to fluoroscopic suite for the procedure, placed prone, skin prepped with ChloraPrep. Skin anesthetized over the L3-L4 interspace. A 20-gauge Tuohy epidural needle advanced first attempt in the epidural space with [address] [address] PAIN MANAGEMENT CONSULTATION Name: MARIANNE JACQUESOleg Cary [id number] Admission: 05/09/19 Attend Phys: Ranjit Rocha MD Discharge: Date of : 30 Report #: [id number] loss of resistance technique. There was no blood nor CSF aspirated. A 1 mL of Omnipaque was injected. Good spread of dye observed in the epidural space followed by 3 mL of 0.5% lidocaine mixed with 80 mg of triamcinolone. She tolerated the procedure well and was observed for 45 minutes and discharged. By: [id number] Ranjit Rocha MD /nt
[2019-05-09 10:22] VITALS: BP 136/68
--- NOTE | 2019-05-09 10:31 | NUR ---
Pain Clinic Assessment: 1. History of Osteoarthritis: HANDS SPINE History of Rheumatoid Arthritis: DENIES 2. Height: 5 ft. 2 in. 157.5 cm. Weight: 180.0 lb. oz. 81.648 kg. Patient's BMI: 32.9 3. Vital Signs: BP: 136/68 Pulse: 74 Resp: 16 Temp: 02 Sat: 99 ECG Mon: 4. Pain Intensity: 8 5. Fall Risk: Dizziness: N Needs help standing or walking: Y Fallen in the last 3 months: Y Fall risk comments: 6. Patient on Blood Thinner: None 7. History of Hypertension: Y 8. Opioid Therapy greater than 6 weeks: N Opiate Contract Signed: 9. Risk Assessment Tool Provided: LOW RISK 07/29 10. Functional Assessment Tool: 11. Recreational Drug Use: Never Drug Type: Tobacco Use: Never Smoker Tobacco Type: Amount or Packs/day: How Many Years: Alcohol Use: No Frequency: Quant:
== END | disposition home or self-care (01) ==
LOC: PAIN 07:18
DX: M54.16 Radiculopathy, lumbar region (principal); G89.29 Other chronic pain; Z98.890 Other specified postprocedural states; Z79.899 Other long term (current) drug therapy

== ENCOUNTER → 2019-07-28 | Outpatient (CLI) | payer OTHER ==
[~2019-07-28] VITALS: Ht 157.5 cm; Wt 79.9 kg
[~2019-07-28] MED LIST changes: +VITAMIN D350 MC1 PO
--- NOTE | ~2019-07-28 | HPC ---
[facility] [place] [address] PAIN MANAGEMENT CONSULTATION Name: MAY JACQUES Room #: REG [facility] Skip.#: [id number] Admission: 07/28/19 Attend Phys: Ranjit Rocha MD Discharge: Date of : 30 Report #: [id number] THIS REPORT FOR: //name// CC: Juan Castrejon DO Ranjit Rocha DATE OF SERVICE: 07/28/2019 REASON FOR VISIT: Followup visit for severe spinal stenosis with lumbar radiculopathy, bilateral. SUBJECTIVE: The patient is here today with her daughter for an epidural injection. She has responded beautifully with several months of improvement in her low back and leg pain following an injection performed about every 2-3 months. Her last injection was almost 90 days ago. The pain is now returning. It is similar as before, radiates from her back into both legs in a radicular fashion, stopping just behind the knee. Worse with standing and walking. She has some neurogenic claudication. I reviewed all of her medications. I do not prescribe for her. She is on a number of medications, which could potentially cause side effects and she should discuss these further with her primary care physician. PQRS: 1. History of osteoarthritis of the hands and spine. BMI is 32.2. 2. Vital signs: Blood pressure 146/78, heart rate 78, respirations 16, O2 sat 97. Pain intensity 8/10. 3. Fall risk, yes, she needs help standing or walking. She has not fallen in the last 3 months. She denies use of blood thinners, but remains on an antihypertensive. She takes no opioid medications. Functional assessment score is 46/70. She denies use of tobacco or alcohol. She is 89 years old and her faculties are good. PHYSICAL EXAMINATION: VITAL SIGNS: As noted above. CHEST: Clear. CARDIAC: Rhythm is regular. GASTROINTESTINAL: Her abdomen is soft. She moves easily from sitting to standing position, but needs bit of support to walk. She has tenderness across her low back and limited range of motion. Bilateral straight leg raising is noted, reproducing pain through the hips and into the legs. MRI demonstrates severe spinal stenosis at the level of 4.5 and central canal at L4-L5. [facility] [address] [place] [address] PAIN MANAGEMENT CONSULTATION Name: MAY JACQUES Room #: [facility]#: [id number] Admission: 07/28/19 Attend Phys: Ranjit Rocha MD Discharge: Date of : 30 Report #: [id number] RECOMMENDATION: Repeat epidural injection L3-L4 under fluoroscopic guidance. PROCEDURE: After informed consent, she was taken to fluoroscopic suite, placed prone, skin prepped with ChloraPrep. Skin anesthetized over the L4-L5 interspace. A 20-gauge Tuohy epidural needle was advanced on the first attempt in the epidural space with loss of resistance. There was no blood or CSF aspirated. A 1 mL of Omnipaque injected. Good spread of dye observed into the epidural space followed by 3 mL of 0.5% lidocaine mixed with 80 mg triamcinolone. She tolerated the procedure well. She was observed for 45 minutes and discharged. There were no complications. Follow up as needed. By: [id number] Ranjit Rocha MD /nt
[2019-07-28 11:36] VITALS: BP 146/78
--- NOTE | 2019-07-28 11:41 | NUR ---
Pain Clinic Assessment: 1. History of Osteoarthritis: HANDS SPINE History of Rheumatoid Arthritis: DENIES 2. Height: 5 ft. 2 in. 157.5 cm. Weight: 176.2 lb. oz. 79.924 kg. Patient's BMI: 32.2 3. Vital Signs: BP: 146/78 Pulse: 78 Resp: 16 Temp: 02 Sat: 97 ECG Mon: 4. Pain Intensity: 8 5. Fall Risk: Dizziness: N Needs help standing or walking: Y Fallen in the last 3 months: N Fall risk comments: 6. Patient on Blood Thinner: None 7. History of Hypertension: Y 8. Opioid Therapy greater than 6 weeks: N Opiate Contract Signed: 9. Risk Assessment Tool Provided: LOW RISK 07/29 10. Functional Assessment Tool: 11. Recreational Drug Use: Never Drug Type: Tobacco Use: Never Smoker Tobacco Type: Amount or Packs/day: How Many Years: Alcohol Use: No Frequency: Quant:
== END | disposition home or self-care (01) ==
LOC: PAIN 06:47
DX: M54.16 Radiculopathy, lumbar region (principal); M48.062 Spinal stenosis, lumbar region with neurogenic claudication; G89.29 Other chronic pain; I10 Essential (primary) hypertension; M19.90 Unspecified osteoarthritis, unspecified site; Z98.890 Other specified postprocedural states; Z79.899 Other long term (current) drug therapy